=== PATIENT | male | born 1975 | race Native Hawaiian/Other Pacific Islander ===

== ENCOUNTER 2024-02-11 00:01 | Emergency (ER) | payer OTHER ==
[~2024-02-11] VITALS: Ht 180.3 cm; Wt 208.7 kg
[2024-02-11] MEDS ORDERED: Ibuprofen 600 MG Tab PO ONE (02:35)
[2024-02-11] MEDS ORDERED: Acetaminophen 500 MG Tab PO ONE (02:35)
== END 2024-02-11 04:11 | disposition home or self-care (01) ==
LOC: ER 00:01
DX: S93.401A Sprain of unspecified ligament of right ankle, initial encounter (principal); E11.9 Type 2 diabetes mellitus without complications; I10 Essential (primary) hypertension; W18.30XA Fall on same level, unspecified, initial encounter; Z68.44 Body mass index [BMI] 60.0-69.9, adult
CPT/HCPCS: 73560-RT; 73590; 73610; 73630; 99283-25; A9270